=== PATIENT | male | born 1960 | race Native Hawaiian/Other Pacific Islander ===

== ENCOUNTER 2016-11-01 10:43 | Outpatient (CLI) | payer OTHER ==
[2016-11-01 11:13] LABS: PLATELET COUNT 122 K/uL (142-355)
[2016-11-01 11:23] LABS: POTASSIUM 4.3 mmol/L (3.6-5.2)
== END 2016-11-01 19:35 | disposition home or self-care (01) ==
LOC: LABW 10:43
PROVIDERS: Internal Medicine Gastroenterology
DX: Z94.4 Liver transplant status (principal); Z79.899 Other long term (current) drug therapy; Z51.81 Encounter for therapeutic drug level monitoring
CPT/HCPCS: 36415; 80053; 80197; 82977; 83735; 84100; 85027; 85610; 86645

== ENCOUNTER 2017-01-05 09:38 | Outpatient (CLI) | payer OTHER ==
[2017-01-05 10:04] LABS: PLATELET COUNT 176 K/uL (142-355)
[2017-01-05 10:49] LABS: POTASSIUM 4.1 mmol/L (3.6-5.2)
== END 2017-01-05 10:30 | disposition home or self-care (01) ==
LOC: LABW 09:38
PROVIDERS: Internal Medicine Gastroenterology
DX: Z94.4 Liver transplant status (principal); Z79.899 Other long term (current) drug therapy; Z51.81 Encounter for therapeutic drug level monitoring
CPT/HCPCS: 36415; 80053; 80197; 82977; 83735; 84100; 84550; 85027; 85610; 86645

== ENCOUNTER 2017-07-12 08:06 | Outpatient (CLI) | payer OTHER ==
[2017-07-12 08:39] LABS: PLATELET COUNT 119 K/uL (142-355)
[2017-07-12 08:47] LABS: POTASSIUM 4.2 mmol/L (3.6-5.2)
== END 2017-07-12 09:10 | disposition home or self-care (01) ==
LOC: LABW 08:06
PROVIDERS: Internal Medicine Gastroenterology
DX: Z94.4 Liver transplant status (principal); Z79.899 Other long term (current) drug therapy; Z51.81 Encounter for therapeutic drug level monitoring
CPT/HCPCS: 36415; 80053; 80197; 82465; 82977; 83735; 84100; 84550; 85027; 85610; 87497

== ENCOUNTER 2017-11-09 06:50 | Outpatient (CLI) | payer OTHER ==
[2017-11-09 08:16] LABS: PLATELET COUNT 151 K/uL (142-355)
[2017-11-09 08:20] LABS: POTASSIUM 4.4 mmol/L (3.6-5.2)
== END 2017-11-09 18:00 | disposition home or self-care (01) ==
LOC: LABW 06:50
PROVIDERS: Internal Medicine Gastroenterology
DX: Z94.4 Liver transplant status (principal); Z79.899 Other long term (current) drug therapy; Z51.81 Encounter for therapeutic drug level monitoring
CPT/HCPCS: 36415; 80053; 80197; 82465; 82977; 83735; 84100; 84550; 85027; 85610; 87497

== ENCOUNTER 2018-03-20 08:43 | Outpatient (CLI) | payer OTHER ==
[2018-03-20 09:36] LABS: PLATELET COUNT 250 K/uL (142-355)
[2018-03-20 09:57] LABS: POTASSIUM 4.5 mmol/L (3.6-5.2)
== END 2018-03-20 19:53 | disposition home or self-care (01) ==
LOC: LABW 08:43
PROVIDERS: Internal Medicine Gastroenterology
DX: Z94.4 Liver transplant status (principal); Z79.899 Other long term (current) drug therapy; Z51.81 Encounter for therapeutic drug level monitoring
CPT/HCPCS: 36415; 80053; 80197; 82465; 82977; 83735; 84100; 84550; 85027; 85610; 87497

== ENCOUNTER 2018-05-22 10:29 | Outpatient (CLI) | payer OTHER ==
[2018-05-22 10:57] LABS: PLATELET COUNT 150 K/uL (142-355)
[2018-05-22 11:43] LABS: POTASSIUM 4.3 mmol/L (3.6-5.2)
== END 2018-05-22 23:29 | disposition home or self-care (01) ==
LOC: LABW 10:29
PROVIDERS: Internal Medicine Gastroenterology
DX: Z94.4 Liver transplant status (principal); Z79.899 Other long term (current) drug therapy
CPT/HCPCS: 36415; 80053; 80197; 82977; 83735; 84100; 85027; 85610; 87497

== ENCOUNTER 2018-07-31 09:56 | Outpatient (CLI) | payer OTHER ==
[2018-07-31 10:17] LABS: PLATELET COUNT 134 K/uL (142-355)
== END 2018-07-31 20:31 | disposition home or self-care (01) ==
LOC: LABW 09:56
PROVIDERS: Internal Medicine Gastroenterology
DX: Z94.4 Liver transplant status (principal); Z79.899 Other long term (current) drug therapy
CPT/HCPCS: 36415; 80053; 80197; 82977; 83735; 84100; 85027; 85610; 87497

== ENCOUNTER 2018-10-19 08:18 | Outpatient (CLI) | payer OTHER ==
[2018-10-19 08:37] LABS: PLATELET COUNT 125 K/uL (142-355)
[2018-10-19 08:43] LABS: POTASSIUM 3.8 mmol/L (3.6-5.2)
== END 2018-10-19 20:20 | disposition home or self-care (01) ==
LOC: LABW 08:18
PROVIDERS: Internal Medicine Gastroenterology
DX: Z94.4 Liver transplant status (principal); Z79.899 Other long term (current) drug therapy
CPT/HCPCS: 36415; 80053; 80197; 82977; 83735; 84100; 85027; 85610; 87497

== ENCOUNTER 2018-12-13 18:06 | Outpatient (CLI) | payer OTHER ==
[2018-12-13 18:21] LABS: PLATELET COUNT 134 K/uL (142-355)
[2018-12-13 18:47] LABS: POTASSIUM 3.8 mmol/L (3.6-5.2)
== END 2018-12-13 23:48 | disposition home or self-care (01) ==
LOC: LABW 18:06
PROVIDERS: Internal Medicine Gastroenterology
DX: Z94.4 Liver transplant status (principal); Z79.899 Other long term (current) drug therapy
CPT/HCPCS: 36415; 80053; 80197; 82977; 83735; 84100; 85027; 85610; 87497

== ENCOUNTER 2019-04-06 09:15 | Outpatient (CLI) | payer OTHER ==
[2019-04-06 09:28] LABS: PLATELET COUNT 115 K/uL (142-355)
[2019-04-06 10:03] LABS: POTASSIUM 4.3 mmol/L (3.6-5.2)
== END 2019-04-06 23:42 | disposition home or self-care (01) ==
LOC: LABW 09:15
PROVIDERS: Internal Medicine Gastroenterology
DX: Z94.4 Liver transplant status (principal); Z79.899 Other long term (current) drug therapy
CPT/HCPCS: 36415; 80053; 80197; 82977; 83735; 84100; 85027; 85610; 87497

== ENCOUNTER 2019-05-21 07:33 | Outpatient (CLI) | payer OTHER ==
[2019-05-21 08:49] LABS: PLATELET COUNT 130 K/uL (142-355)
[2019-05-21 09:08] LABS: POTASSIUM 3.9 mmol/L (3.6-5.2)
== END 2019-05-21 23:14 | disposition home or self-care (01) ==
LOC: LABW 07:33
PROVIDERS: Internal Medicine Gastroenterology
DX: Z94.4 Liver transplant status (principal); Z79.899 Other long term (current) drug therapy
CPT/HCPCS: 36415; 80053; 80197; 82977; 83735; 85027; 85610; 87497

== ENCOUNTER 2019-06-28 09:52 | Outpatient (CLI) | payer OTHER ==
[2019-06-28 10:16] LABS: PLATELET COUNT 148 K/uL (142-355)
== END 2019-06-28 20:34 | disposition home or self-care (01) ==
LOC: LABW 09:52
PROVIDERS: Internal Medicine
DX: Z94.4 Liver transplant status (principal); Z79.899 Other long term (current) drug therapy
CPT/HCPCS: 36415; 80053; 80197; 82977; 83735; 84100; 85027; 85610; 86644

== ENCOUNTER 2019-07-10 09:13 | Outpatient (CLI) | payer OTHER ==
[2019-07-10 09:37] LABS: PLATELET COUNT 123 K/uL (142-355)
[2019-07-10 10:27] LABS: POTASSIUM 3.9 mmol/L (3.6-5.2)
== END 2019-07-10 19:32 | disposition home or self-care (01) ==
LOC: LABW 09:13
PROVIDERS: Internal Medicine
DX: Z94.4 Liver transplant status (principal); Z79.899 Other long term (current) drug therapy
CPT/HCPCS: 36415; 80053; 80197; 82977; 83735; 84100; 85027; 85610

== ENCOUNTER 2019-11-06 11:04 | Outpatient (CLI) | payer OTHER ==
[2019-11-06 11:40] LABS: PLATELET COUNT 136 K/uL (142-355)
== END 2019-11-06 19:18 | disposition home or self-care (01) ==
LOC: LABW 11:04
PROVIDERS: Internal Medicine
DX: Z94.4 Liver transplant status (principal); Z79.899 Other long term (current) drug therapy
CPT/HCPCS: 36415; 80053; 80197; 82977; 83735; 84100; 85027; 85610

== ENCOUNTER 2020-02-07 08:51 | Outpatient (CLI) | payer OTHER ==
[2020-02-07 09:47] LABS: PLATELET COUNT 130 K/uL (142-355)
== END 2020-02-07 19:06 | disposition home or self-care (01) ==
LOC: LABW 08:51
PROVIDERS: Internal Medicine
DX: Z94.4 Liver transplant status (principal); Z79.899 Other long term (current) drug therapy; Z13.220 Encounter for screening for lipoid disorders
CPT/HCPCS: 36415; 80053; 80061; 80197; 82977; 83735; 84100; 84443; 85027; 85610; 87497

== ENCOUNTER 2020-03-03 08:11 | Outpatient (CLI) | payer OTHER ==
[2020-03-03 08:48] LABS: POTASSIUM 4.3 mmol/L (3.6-5.2)
[2020-03-03 09:48] LABS: PLATELET COUNT 125 K/uL (142-355)
== END 2020-03-03 21:47 | disposition home or self-care (01) ==
LOC: LABW 08:11
PROVIDERS: Internal Medicine
DX: Z94.4 Liver transplant status (principal); Z79.899 Other long term (current) drug therapy
CPT/HCPCS: 36415; 80053; 80197; 82977; 83735; 84100; 85027; 85610

== ENCOUNTER 2020-05-15 09:39 | Outpatient (CLI) | payer OTHER ==
[2020-05-15 17:30] LABS: POTASSIUM 3.7 mmol/L (3.6-5.2)
[2020-05-15 17:42] LABS: PARTIAL THROMBOPLASTIN TIME 25.9 SECONDS (24.5-33.6)
[2020-05-15 17:43] LABS: PLATELET COUNT 78 K/uL (142-355)
== END 2020-05-15 23:35 | disposition home or self-care (01) ==
LOC: LABW 09:39
PROVIDERS: Internal Medicine
DX: Z94.4 Liver transplant status (principal); Z79.899 Other long term (current) drug therapy; Z51.81 Encounter for therapeutic drug level monitoring
CPT/HCPCS: 36415; 80053; 80197; 82977; 83735; 84100; 85027; 85610; 85730; 87497

== ENCOUNTER 2020-05-23 09:22 | Outpatient (CLI) | payer OTHER ==
[2020-05-23 10:04] LABS: PLATELET COUNT 130 K/uL (142-355)
== END 2020-05-23 23:21 | disposition home or self-care (01) ==
LOC: LABW 09:22
PROVIDERS: Internal Medicine
DX: Z94.4 Liver transplant status (principal); Z79.899 Other long term (current) drug therapy
CPT/HCPCS: 36415; 85027

== ENCOUNTER 2020-09-25 09:49 | Outpatient (CLI) | payer OTHER ==
[2020-09-25 10:19] LABS: PLATELET COUNT 128 K/uL (142-355)
[2020-09-25 10:28] LABS: POTASSIUM 4.4 mmol/L (3.6-5.2)
== END 2020-09-25 23:43 | disposition home or self-care (01) ==
LOC: LABW 09:49
PROVIDERS: ATTEND Internal Medicine
DX: Z94.4 Liver transplant status (principal); Z79.899 Other long term (current) drug therapy
CPT/HCPCS: 36415; 80053; 80197; 82977; 83735; 84100; 85027; 85610; 87497

== ENCOUNTER 2020-10-24 10:01 | Outpatient (CLI) | payer OTHER ==
[2020-10-24 10:27] LABS: PLATELET COUNT 133 K/uL (142-355)
[2020-10-24 10:48] LABS: POTASSIUM 3.8 mmol/L (3.6-5.2)
== END 2020-10-24 20:54 | disposition home or self-care (01) ==
LOC: LABW 10:01
PROVIDERS: ATTEND Internal Medicine
DX: Z94.4 Liver transplant status (principal); Z79.899 Other long term (current) drug therapy
CPT/HCPCS: 36415; 80053; 80197; 82977; 83735; 84100; 85027; 85610; 87497

== ENCOUNTER 2020-12-05 09:03 | Outpatient (CLI) | payer OTHER ==
[2020-12-05 09:58] LABS: PLATELET COUNT 134 K/uL (142-355)
[2020-12-05 10:07] LABS: POTASSIUM 4.2 mmol/L (3.6-5.2)
== END 2020-12-05 19:49 | disposition home or self-care (01) ==
LOC: LABW 09:03
PROVIDERS: ATTEND Internal Medicine
DX: Z94.4 Liver transplant status (principal); Z79.899 Other long term (current) drug therapy
CPT/HCPCS: 36415; 80053; 80197; 82977; 83735; 84100; 85027; 85610; 87497

== ENCOUNTER 2020-12-15 07:49 | Outpatient (CLI) | payer OTHER ==
[2020-12-15 08:09] LABS: PLATELET COUNT 135 K/uL (142-355)
== END 2020-12-15 19:40 | disposition home or self-care (01) ==
LOC: LABW 07:49
PROVIDERS: ATTEND Internal Medicine
DX: Z94.4 Liver transplant status (principal); Z79.899 Other long term (current) drug therapy
CPT/HCPCS: 36415; 80053; 80197; 82977; 83735; 84100; 85027; 85610; 87497

== ENCOUNTER 2021-04-17 09:26 | Outpatient (CLI) | payer OTHER ==
[2021-04-17 10:07] LABS: PLATELET COUNT 143 K/uL (142-355)
[2021-04-17 10:10] LABS: POTASSIUM 3.9 mmol/L (3.6-5.2)
== END 2021-04-17 19:05 | disposition home or self-care (01) ==
LOC: LABW 09:26
PROVIDERS: ATTEND Internal Medicine
DX: Z94.4 Liver transplant status (principal); Z79.899 Other long term (current) drug therapy
CPT/HCPCS: 36415; 80053; 80197; 82977; 83735; 84100; 85027; 85610; 87497

== ENCOUNTER 2021-04-20 10:40 | Outpatient (CLI) | payer OTHER | END 2021-04-20 21:46 | disposition home or self-care (01) | LOC: LABW 10:40 | PROVIDERS: ATTEND Internal Medicine | DX: Z94.4 Liver transplant status (principal); Z79.899 Other long term (current) drug therapy | CPT/HCPCS: 87497 ==

== ENCOUNTER 2021-07-06 08:12 | Outpatient (CLI) | payer OTHER ==
[2021-07-06 09:28] LABS: PLATELET COUNT 131 K/uL (142-355)
[2021-07-06 09:50] LABS: POTASSIUM 4.1 mmol/L (3.6-5.2)
== END 2021-07-06 19:13 | disposition home or self-care (01) ==
LOC: LABW 08:12
PROVIDERS: ATTEND Internal Medicine
DX: Z94.4 Liver transplant status (principal); Z79.899 Other long term (current) drug therapy
CPT/HCPCS: 36415; 80053; 80197; 82977; 83735; 84100; 85027; 85610; 87497